=== PATIENT | male | born 1955 | race Caucasian/White ===

== ENCOUNTER → 2017-11-01 | Outpatient (CLI) | payer OTHER ==
[~2017-11-01] MED LIST: ASCO500 PO; Bystolic10 MG PO; DIPH50 PO; ERGO400 PO; Hair, Skin & N1 EACH PO; LUPRON DEPOT3.75 MG; NEBI10 PO; Omeprazole20 M1; PRED5 PO; Prilosec Otc20 MG; Prilosec Otc20 MG PO; TRELSTAR11.25 MG/2 IM; XGEVA120 MG/1.7 SC; ZOLEDRONIC ACID4 MG; ZYTIGA500 MG PO
[2017-11-01 12:06] LABS: Source, Urine Clean Catch
[2017-11-01 12:48] LABS: Bilirubin, Urine Neg (Neg); Blood, Urine Neg (Neg); Glucose Qualitative, Urine Neg (Neg); Ketones, Urine Neg (Neg); Leukocyte Esterase, Urine Neg (Neg); Nitrite, Urine Neg (Neg); Protein, Urine Neg (Neg); Urobilinogen, Urine NORM (Normal)
[2017-11-01 13:19] LABS: Appearance, Urine Clear (Clear); Color, Urine Yellow (P-Yellow)
== END ==
LOC: LAB SHORT 12:05 → LAB 12:05
PROVIDERS: Internal Medicine Hematology & Oncology
DX: C61 Malignant neoplasm of prostate (principal); C79.51 Secondary malignant neoplasm of bone; C77.1 Secondary and unspecified malignant neoplasm of intrathoracic lymph nodes; G89.3 Neoplasm related pain (acute) (chronic)
CPT/HCPCS: 81003

== ENCOUNTER 2018-08-08 08:06 | Emergency (ER) | payer MEDICARE ==
[~2018-08-08] VITALS: Ht 177.8 cm; Wt 77.1 kg
[~2018-08-08 08:06] MED LIST changes: +Bactrim Ds Tab1 EACH PO; +FENT50TP TOP; +KETO15TC TOP; +Keflex500 MG PO; +LUPRON DEPOT3.75 M1; +OXYC15ER PO; +[UNRECOGNIZED DRUG - OTHER]
--- NOTE | 2018-08-08 11:03 | NUR ---
Spiritual care visit conducted. I responded to a request for a reading professor by the family of patient in the E.D.. Patient's spouse, son and daughter were in the consult room. I entered the room and introduced myself. Therapeutic alliance was easily established. They openly shared about the events that led up to the expiration of the patient and the emotional struggles they were having concerning his . I conducted a life review, highlighted the strength and love of the family, explored patient's voodoo affiliation, provided pastoral prevocational/rehabilitation counselor regarding and dying according to their tradition, provided a calming presence and provided prayer. Family responded well and showed signs of being comforted.
== END 2018-08-08 08:08 ==
LOC: ER 08:06
DX: I46.9 Cardiac arrest, cause unspecified (principal); K21.9 Gastro-esophageal reflux disease without esophagitis; Z88.8 Allergy status to other drugs, medicaments and biological substances; Z88.1 Allergy status to other antibiotic agents; Z79.899 Other long term (current) drug therapy; Z79.52 Long term (current) use of systemic steroids; Z87.891 Personal history of nicotine dependence
CPT/HCPCS: 92950; 99285-25